=== PATIENT | female | born 1955 | race Caucasian/White ===

== ENCOUNTER 2017-04-06 14:12 | Outpatient (CLI) | payer BC ==
--- OUTSIDE RECORDS SUMMARY | 2017-04-11 20:05 | XMS | Clinical Summary ---
:1955 Author Organization [facility] Address [address] [place] [address] Phone Care Team Providers Name Role Phone , Primary Care Provider Unavailable Allergies Not on File Current Medications Not on file Active Problems Not on file Social History Tobacco Use Types Packs/Day Years Used Date Never Assessed Sex Assigned at Date Recorded Not on file Last Filed Vital Signs Not on file Plan of Treatment Health Maintenance Due Date Last Done Comments PAP SMEAR 1977 COLONOSCOPY 2006 MAMMOGRAM 2006 ZOSTER VACCINE 2016 INFLUENZA VACCINE 01/17/2017 Results Not on filefrom Last 3 Months
== END 2017-04-06 14:13 | disposition home or self-care (01) ==
LOC: WCC 14:12
PROVIDERS: ATTEND Family Medicine
DX: T81.89XD Other complications of procedures, not elsewhere classified, subsequent encounter (principal)
CPT/HCPCS: 99211; G0463

== ENCOUNTER 2017-09-18 12:40 | Outpatient (CLI) | payer OTHER ==
--- NOTE | 2017-09-18 15:20 | MRI ---
LUMBAR SPINE MRI WITH AND WITHOUT CONTRAST: History Transverse myelitis. Lower extremity pain and weakness. Increasing weakness I the legs. COMPARISON: None. TECHNIQUE: MRI lumbar spine is performed without intravenous Gadolinium administration. Multisequential, multip lanar imaging is performed. FINDINGS: An appropriate T1 marrow signal intensity of the lumbar vertebrae. Lumbar spine vertebral body heigh t is maintained. No fracture. There is 4 mm of anterolisthesis of L4 upon L5. No significant T2 or STIR hyperintensity to suggest vertebral body edema or ligamentous injury. There is a T2 hyperinten sity on the posterior margin of the disk at the L4-L5 level with associated enhancement. A small ana cristina ular fissure is favored. Symmetric signal intensity of the psoas muscles. Appropriate signal intensity of the visualized juan francisco d organs. No retroperitoneal mass, lymphadenopathy, or hematoma. Conus medullaris terminates at the inferior end plate of T12. T11-T12 and T12-L1: No significant central canal stenosis or foraminal narrowing. L1-L2: No significant central canal stenosis or foraminal narrowing. L2-L3: No significant central canal stenosis or foraminal narrowing. Minimal hypertrophy of the pos terior elements. L3-L4: Adequate disk hydration. No significant central canal stenosis. Neural foramen are patent b ilaterally. L4-L5: Desiccation with mild loss of disk space height. Minimal generalized disk bulge. Disk mater ial encroaches upon both subarticular zones. There is mass effect without obscuration of bilateral t raversing L5 nerve roots, left greater than right. There is moderate right-sided facet hypertrophy. A small amount of fluid in the right intraarticular facet joint. Overall, no significant stenosis o f the thecal sac. Bilaterally, foramen are patent. L5-S1: No significant central canal stenosis. Neural foramen are patent bilaterally. On the postcontrast images, there is no abnormal enhancement within the thecal sac including the caud a equina and conus medullaris. No abnormal enhancement of the vertebral bodies. There does appear t o be asymmetric slightly right paracentral disk bulge at T10-T11, incompletely evaluated and only christian reciated on the sagittal images. Refer to thoracic spine MRI which will be performed later today for further details. IMPRESSION: 1. No abnormal enhancement. 2. Degenerative changes of the lumbar spine as above. No high-grade central canal stenosis or high- grade foraminal narrowing. 3. Annular fissure at L5-S1. POS: [facility]
--- NOTE | 2017-09-18 15:38 | MRI ---
MRI THORACIC SPINE WITH AND WITHOUT CONTRAST: Technique: Multiplanar, multisequential imaging of the thoracic spine obtained. Post contrast images obtained after administering 18 cc of MultiHance IV. Indications: Transverse myelitis. Lower extremity pain and weakness. History of transverse myelitis a t T3-4. Comparison: None. FINDINGS: The thoracic vertebrae maintain normal height and alignment. Disc spaces are preserved. Mild degenera tive changes are noted. There is a small disc protrusion paracentrally to the left at the T7-8 disc level. This flattens the anterior thecal sac on the left and does abutt the anterior cord to the left of midline. There is small asymmetric disc bulge paracentrally to the left at T10-T11 which flattens the anterior thecal sac on the left. No cord impingement. No evidence of cord abnormality identified. There is no edema or enhancement seen within the thoracic cord. IMPRESSION: 1. Small disc protrusion to the left at T7-8 and T10-11 as described above. 2. No cord signal abnormality identified. POS: [facility]
--- NOTE | 2017-09-18 15:45 | MRI ---
CERVICAL SPINE MRI WITH AND WITHOUT CONTRAST: HISTORY: Lower extremity weakness. Dysphagia. Transverse myelitis at T3-T4 (past medical history). Increasi ng leg weakness. COMPARISON: None. TECHNIQUE: MRI cervical spine is performed with and without intravenous Gadolinium administration. Multisequent ial, multiplanar imaging is performed. FINDINGS: Appropriate T1 marrow signal intensity of the cervical vertebrae. Cervical spine vertebral body heig ht is maintained. No fracture. No abnormal enhancement. Visualized brain parenchyma, cervicomedull jake junction, cervical cord, and the upper thoracic cord have a normal size and signal intensity. No T2 hyperintensity. No abnormal enhancement. No STIR hyperintensity to suggest edema or ligamentous injury. C2-C3: No significant disk-osteophyte complex. O significant central canal stenosis or foraminal na rrowing. C3-C4: No significant disk-osteophyte complex. No significant central canal stenosis. Neural frances en are patent. Minimal degenerative changes of the uncovertebral joint. C4-C5: Broad-based disk-osteophyte complex with a right paracentral component. There is mass effect and deformity of the right aspect of the cervical cord. No T2 hyperintensity in the cord. Moderate central canal stenosis. Degenerative change in bilateral uncovertebral joints results in mild bilat eral foraminal narrowing. C5-C6: Broad-based disk-osteophyte complex with a central component deforms the thecal sac and cause s mass effect upon the central cord. No T2 hyperintensity in the cord. Moderate central canal steno sis. Degenerative change in bilateral uncovertebral joints results in mild to moderate bilateral for aminal narrowing. C6-C7: Broad-based disk-osteophyte complex abuts the thecal sac. Mild to moderate central canal yanira nosis. Degenerative change in bilateral uncovertebral joints results in mild to moderate bilateral f oraminal narrowing. C7-T1: No significant central canal stenosis or foraminal narrowing. IMPRESSION: 1. Degenerative change of the cervical spine as detailed above. 2. No abnormal enhancement. POS: [facility]
--- NOTE | 2017-09-18 15:51 | MRI ---
BRAIN MRI WITH AND WITHOUT CONTRAST: History Transverse myelitis T3-T4. Increased leg weakness. COMPARISON: None. TECHNIQUE: Brain MRI is performed with and without intravenous Gadolinium administration. Multisequential, mult iplanar imaging is performed. FINDINGS: No hemorrhage on the axial gradient echo sequence. There are multiple T2 and FLAIR white matter hyperintensities, the majority of which do not restrict and do not have enhancement. There is a solitary focus in the right centrum semiovale which does hav e associated subtle enhancement. A late subacute infarct compresses a demyelinating plaque or a poss ible malignant lesion are differential considerations. Comparison with prior imaging would be benefi cial. There is no midline shift. Basilar cisterns are patent. Cortical cook-white matter different iation is preserved. Adequate aeration of the sinuses and mastoid air cells. Midline brain parenchymal structures are unremarkable. Calvarium has a normal T1 marrow signal inten sity. IMPRESSION: Abnormal signal intensity involving the right centrum semiovale as detailed above. Differential cons ideration is a late subacute infarct versus a demyelinating plaque versus a malignant lesion. Compar juan m with prior imaging is recommended. POS: [facility]
== END 2017-09-18 12:41 | disposition home or self-care (01) ==
LOC: MRI 12:40
PROVIDERS: ATTEND Student in an Organized Health Care Education/Training Program
DX: Z01.812 Encounter for preprocedural laboratory examination (principal); G37.3 Acute transverse myelitis in demyelinating disease of central nervous system; M62.81 Muscle weakness (generalized); M79.603 Pain in arm, unspecified; M79.606 Pain in leg, unspecified; R13.10 Dysphagia, unspecified; R06.02 Shortness of breath; M47.892 Other spondylosis, cervical region; M51.24 Other intervertebral disc displacement, thoracic region; M47.896 Other spondylosis, lumbar region; Q05.7 Lumbar spina bifida without hydrocephalus
CPT/HCPCS: 70553; 72156; 72157; 72158; 82565

== ENCOUNTER → 2017-10-13 | Day surgery (SDC) | payer OTHER ==
[2017-10-13 10:08] LABS: CSF, Glucose 75 mg/dl (40-70); CSF, Protein 34 mg/dL (15-40)
[2017-10-13 10:30] LABS: Color Of CSF Supernatant COLORLESS (Colorless); Tube # 2; Unspun CSF Color COLORLESS (Colorless)
[2017-10-13 10:41] LABS: CSF Source CSF; Clarity Clear (Clear)
[2017-10-13 10:42] LABS: Tube # 4
[2017-10-13 10:43] LABS: RBC Count - Manual 770 /cumm (None Seen); WBC/NonHematics Count - Manual 0 /cumm (0-5)
--- NOTE | 2017-10-13 11:28 | RAD ---
LUMBAR PUNCTURE: HISTORY: Demyelinating change in brain. Evaluate for multiple sclerosis. Evaluate for transverse myelitis. Opening pressures requested. COMPARISON: None. FINDINGS: Successful lumbar puncture. A total of 9 cc of clear CSF was collected. Opening pressure is 12 cm o f water. TECHNIQUE: Consent was obtained to perform a lumbar puncture. The patient's back was evaluated. The L3-L4 leve l was deemed appropriate. The skin was prepped and draped in sterile fashion. 1% Lidocaine, buffere d with sodium bicarbonate, was used for local anesthesia. Under fluoroscopic guidance, a 22-gauge sp inal needle was advanced into the CSF space. Opening pressure was determined to be 12 cm of water. A total of 9 cc of clear CSF was collected. The patient tolerated the procedure well. No immediate or post procedure complication. EXPOSURE: 3.3 minutes. 954.6 mGy*^cm2. IMPRESSION: Successful lumbar puncture. POS: [facility]
[2017-10-13 14:10] LABS: Ref Lab Test Ordered NMO SERUM
[2017-10-13 14:12] LABS: Ref Lab Test Ordered FACEC
[2017-10-16 12:12] LABS: VDRL, CSF Non Reactive (Non Rea:<1:1)
== END ==
LOC: RAD 07:04
PROVIDERS: ATTEND Student in an Organized Health Care Education/Training Program
PROC: 009U3ZZ Drainage of Spinal Canal, Percutaneous Approach (ICD-10-PCS; principal; 2017-10-13)
DX: G37.3 Acute transverse myelitis in demyelinating disease of central nervous system (principal); Z88.1 Allergy status to other antibiotic agents; Z88.2 Allergy status to sulfonamides; Z88.5 Allergy status to narcotic agent
CPT/HCPCS: 36415; 62270; 82040; 82042; 82784; 82945; 83916; 84157; 86592; 86788; 86789; 87070; 87205; 87255; 88184; 89051

== ENCOUNTER 2017-12-26 14:40 | Outpatient (CLI) | payer OTHER | END 2017-12-26 14:41 | disposition home or self-care (01) | LOC: BICULT 14:40 | PROVIDERS: ATTEND Urology | DX: N31.9 Neuromuscular dysfunction of bladder, unspecified (principal) | CPT/HCPCS: 76770 ==

== ENCOUNTER 2019-11-06 18:18 | Inpatient (IN) | payer MEDICARE, OTHER ==
[~2019-11-06 18:18] MED LIST: Iopamidol-370 76% 500 ML 1 ML ONE
--- NOTE | 2019-11-06 18:55 | RAD ---
Exam: Chest one view HISTORY:Abdominal pain. Comparison: 05/11/2017 FINDINGS: Cardiac silhouette:Mild enlarged cardiac silhouette Aorta: Endovascular stent along the descending thoracic aorta Pulmonary vessels: Normal Costophrenic angles: Clear LUNGS: No masses or consolidation. Pneumothorax: None Osseous abnormalities: None IMPRESSION: 1. No acute cardiopulmonary process. 2. Redemonstration of a stent in the descending thoracic aorta.
[2019-11-06] MEDS ORDERED: Fentanyl 100 MCG/2 ML VIAL ONE ×3 (19:00→21:22)
[2019-11-06] MEDS ORDERED: Ondansetron PF 4 MG/2 ML Vial ONE ×3 (19:01→19:55)
[2019-11-06 19:15] LABS: #Eosinphils 0.1 thou/uL (0.0-0.7); #Lymphocytes 1.8 thou/uL (1.20-3.40); #Monocytes 0.5 thou/uL (0.11-0.59); #Neutrophils 11.5 thou/uL (1.40-6.50); %Basophils 0.2 % (0.0-1.0); %Eosinophils 0.7 % (0.0-10.0); %Monocytes 3.8 % (0.0-10.0); %Neutrophils 82.3 % (42.0-75.0); Hemoglobin 14.3 g/dL (12.0-16.0); Mean Corpuscular HGB CONC 33.7 g/dL (32.0-36.0); Mean Corpuscular Hemoglobin 29.5 pg (27.0-31.0); Mean Corpuscular Volume 87.5 fL (78.0-98.0); Mean Platelet Volume 8.6 fL (7.4-10.4); Platelet Count 241 thou/uL (130-400); RBC Distribution Width 13.4 % (11.5-14.5); Red Blood Cell (RBC) Count 4.86 mill/uL (4.20-5.40)
[2019-11-06 19:37] LABS: ALT (SGPT) 56 U/L (8-55); AST (SGOT) 39 U/L (5-34); Albumin 4.4 g/dL (3.4-4.8); Alkaline Phosphatase 111 U/L (40-110); Anion Gap 19 mmol/L (10-20); BUN (Urea Nitrogen) 14 mg/dL (9.8-20.1); Bilirubin, Total 0.5 mg/dL (0.2-1.2); Calc. Creatinine Clearance 0 mL/min (70-130); Calcium 9.4 mg/dL (7.8-10.44); Carbon Dioxide 25 mmol/L (23-31); Chloride 100 mmol/L (98-107); Estimated GFR-MDRD 52; Globulin 2.8 g/dL (2.4-3.5); Glucose 144 mg/dL (80-115); Lipase 7 U/L (8-78); Potassium 4.4 mmol/L (3.5-5.1); Protein, Total 7.2 g/dL (6.0-8.3); Sodium 140 mmol/L (136-145)
--- NOTE | 2019-11-06 20:04 | CT ---
EXAM: CT ABDOMEN AND PELVIS HISTORY: Left abdominal pain. History of volvulus. Previous aortic stent. COMPARISON: 05/07/2017 Procedure: Multiple contiguous axial images were obtained and a CT of the abdomen and pelvis with IV contrast. C oronal reformats were performed. FINDINGS: Lower Chest: within normal limits. Vessels: Stent in the descending thoracic aorta Heart: . No areas of aneurysm, dissection or periaortic fat stranding. Normal heart size. No pericard ial fluid Abdomen: Portal vein:Patent Gallbladder: Cholelithiasis. No evidence of cholecystitis Liver: Hypoattenuation due to hepatic steatosis. No enhancing masses. Pancreas: within normal limits. Spleen: within normal limits. Adrenals: within normal limits. Kidneys: Symmetric enhancement. No obstructive uropathy. Diverting Ileostomy in the right lower quadr ant. Peritoneum: No ascites or free air, no fluid collection. Bowel: Multiple prominent fluid-filled loops of proximal and mid small bowel. Mild enhancement of the mucosa. Small bowel anastomosis the left hemiabdomen. Ileocecal junction has a normal appearance. Appendix is not appreciated. No secondary signs of appendicitis. Decompressed colon with scattered fe jefferson material. Mesentery and Retroperitoneum: No enlarged mesenteric or retroperitoneal lymph nodes. Abdominal Wall: Right lower quadrant diverting ileostomy. Anterior midline supraumbilical hernia containing mesenteric fat. Pelvis: Reproductive Organs: Surgically absent uterus Pelvis: No mass, lymphadenopathy, free air or free fluid. Bladder: Surgically absent Bones: within normal limits. IMPRESSION: 1. Diverting ileostomy in the right lower quadrant. No evidence of hydronephrosis 2. Small bowel obstruction involving proximal and mid small bowel loops. Transcribed Date/Time: 11/06/2019 8:53 PM
[2019-11-06 20:20] LABS: Bacteria/HPF 3+ HPF (None Seen); Bilirubin Negative (Negative); Blood, Urine Negative (Negative); Clarity Turbid (Clear); Glucose, Urine (Dipstick) Normal (Negative); Leukocyte 500 Leu/uL (Negative); Nitrite Negative (Negative); Protein, Urine (Dipstick) 10 mg/dL (Neg-Trace); RBC/HPF 0-3 HPF (0-3); Squamous Epithelial 0-3 HPF (0-3); Urobilinogen Normal mg/dL (Less than 2); WBC/HPF 21-50 HPF (0-3)
[2019-11-06] MEDS ORDERED: Piperacillin/Tazobactam 4.5 GM VIAL ONE (20:48)
[2019-11-06] MEDS ORDERED: Benzocaine 20% Spray 60 ML CAN ONE (22:13)
[2019-11-06] MEDS ORDERED: Lidocaine Viscous Sol 2% 15 ml UD Cup ONE (22:13)
[2019-11-06] MEDS ORDERED: Oxymetazoline HCl 0.05% (30 ML BOT) ONE (22:13)
[2019-11-06 22:16] LABS: Lactic Acid 1.6 mmol/L (0.5-2.2)
--- NOTE | 2019-11-06 22:47 | RAD ---
Exam: 1 view abdomen HISTORY: NG tube placement FINDINGS: Nasogastric tube terminates in the left upper quadrant and is presumed to be in the stomach . IMPRESSION: Nasogastric tube is in stomach.
[2019-11-06] MEDS ORDERED: Dextrose 5% in Water 1,000 ML IV PRN (23:52)
[2019-11-06] MEDS ORDERED: Dextrose 50% Abboject 50 ML SYRINGE SLOW IVP PRN (23:52)
[2019-11-06] MEDS ORDERED: HumaLOG 300 UNITS/3 ML VIAL SC PRN (23:52)
[2019-11-06] MEDS ORDERED: HYDROmorphone 0.5 MG/0.5 ML SYRINGE SLOW IVP PRN (23:54)
[2019-11-07] MEDS: Sodium Chloride 0.9% 1,000 ML IV SCH ×3 (00:35→14:38)
[2019-11-07] MEDS: Ampicillin/Sulbactam 3 GM in Sodium Chloride 0.9% 100 ML IVPB SCH ×4 (01:07→20:28)
--- NOTE | 2019-11-07 03:35 | HP ---
REASON FOR ADMISSION: Abdominal pain. HISTORY OF PRESENT ILLNESS: This is a 64-year-old female patient, who has history of transverse myelitis diagnosed in 2015. Subsequently, paralyzed from below T5 level, has been self catheterizing and had frequent urinary tract infection, and in 2017, she had a bladder removed with ileostomy done. After that procedure, she developed a total of 3 episodes of bowel obstruction, last episode was in 2018. All the episodes were treated conservatively without further surgical intervention. Yesterday, the patient developed abdominal pain localized mainly in the left part of her abdomen, but radiates to the whole abdomen, the pain is described as cramping in nature, severe in intensity, associated with nausea and vomiting, the pain improves after vomiting. Her stools usually are soft because she takes a lot of laxatives, but today she did not have any bowel movements. Since the nausea and vomiting persisted as well as the abdominal pain, she presented to our emergency room. Initially, she had a sepsis alert. Her lactic acid was elevated. Her urine was positive for infection. She was given Zosyn and vancomycin. She got IV fluids. Repeat lactic acid normalized. Currently, she complains of pain. Does not report any fevers. No chills. She says that her urinalysis usually is positive since she does have the ileostomy. PAST MEDICAL HISTORY: 1. Transverse myelitis. 2. Post bladder resection and ileostomy. 3. Frequent UTIs before she had the ileostomy done. 4. Hypothyroidism. 5. Chronic pain and muscle spasm in her lower extremity, for which she takes baclofen and Neurontin. 6. DVT at the site of the PICC line and in her lower extremity, for which she takes Xarelto 10 mg once a day. 7. Diabetes, for which she takes metformin. 8. Bilateral lower extremity edema, for which she takes furosemide. ALLERGIES: TO CEPHALEXIN, WHICH GIVES HER HIVES, BUT SHE IS ABLE TO TOLERATE AUGMENTIN AND OTHER ANTIBIOTICS. ALSO MORPHINE MAKES HER AGITATED. FAMILY HISTORY: Positive for lung cancer. REVIEW OF SYSTEMS: All systems reviewed except for the above mentioned nausea and vomiting, found to be negative. PHYSICAL EXAMINATION: GENERAL: The patient is awake, alert, oriented, does not appear in distress. VITAL SIGNS: Her blood pressure is 121/93, heart rate of 106, respiratory rate 16, and saturating 94% on room air. HEENT: Head is nontraumatic and normocephalic. Pupils equal, reactive. Extraocular movements are intact. NECK: Supple. No adenopathy. No murmur. Thyroid is not palpable. Trachea is midline. No supraclavicular adenopathy. HEART: S1, S2, . No murmur. No gallop. No friction rubs. No displacement of PMI. LUNGS: Clear to auscultation bilaterally. No wheezes, rhonchi, or crackles. Bowel sounds are decreased. ABDOMEN: Distended and tender, but soft, non-rigid. EXTREMITIES: No lower extremity edema. No cyanosis noted on exam. She is able to move all her 4 extremities. Cranial nerves appeared to be intact. LABORATORY DATA: Blood work shows sodium 140, potassium 4.4, bicarb 25, BUN 14, creatinine 1.07. Lactic acid initially 2.7, repeat 1.6, glucose 144, AST 39, ALT 56. Reviewing previous lab values, they were within normal limits. Alkaline phosphatase is 111, previously 103 in 2018. Urine shows 500 leukocyte esterase and 20-50 WBC. IMAGING DATA: CT of the abdomen and pelvis shows diverting ileostomy in the right lower quadrant. No evidence of hydronephrosis. Small-bowel obstruction involving proximal and mid small bowel loops. Chest x-ray shows no acute process re-demonstrating a stent in the descending thoracic aorta. ASSESSMENT AND PLAN: This is a 64-year-old female patient, who presented with abdominal pain secondary to small-bowel obstruction. Also, her urine is positive for urinary tract infection. GI: The patient will be kept n.p.o. She does have an NG tube placed and it is to intermittent suction, Surgery was consulted by the ED physician and they will see her in the morning. Until then, she will be on IV Dilaudid as needed. She will be on IV Protonix since she is on omeprazole at home. We will recheck her labs in the morning. Her LFTs were a bit elevated, but possibly due to dehydration and she will be on IV fluids. In regard to her diabetes, we will hold her insulin and we will cover her with insulin sliding scale. Her glucose was acceptable, so we would not give her any long-acting since she is n.p.o. for now. In regard to her urinary tract infection, I would expect that her urine will always be positive for WBC since she does have ileostomy, but since she is presenting acutely and with all other symptoms, we would prefer to cover her with antibiotics, in the ER she did receive IV Zosyn and vancomycin. I believe that Unasyn should suffice. She said that she can take Augmentin, so Unasyn should work without any side effects. For DVT prophylaxis, she will be on Lovenox, the patient is on Xarelto 10 mg once a day for DVT prophylaxis since she does have history of DVT. So, Lovenox 40 mg once a day should suffice. The patient does have a lot of other medications that we will not be able to convert to IV such as baclofen, Neurontin, levothyroxine, and pilocarpine. Also, she is on furosemide for swelling of her legs, but for now since we are aiming to hydrate her, I would not restart her on IV Lasix and I believe that we can hold off on the other oral medications for now until her obstruction resolves. I did discuss the above plan with her and she is in agreement. I did discuss her code status and she wishes to be a full code. Job ID: [id number]
[2019-11-07] MEDS: Fentanyl 100 MCG/2 ML VIAL SLOW IVP PRN ×2 (05:51→09:45)
[2019-11-07 06:21] VITALS: BMI 36.6
[2019-11-07 06:28] LABS: #Eosinphils 0.2 thou/uL (0.0-0.7); #Lymphocytes 1.5 thou/uL (1.20-3.40); #Monocytes 0.7 thou/uL (0.11-0.59); #Neutrophils 13.1 thou/uL (1.40-6.50); %Basophils 0.1 % (0.0-1.0); %Lymphocytes 9.7 % (21.0-51.0); %Monocytes 4.5 % (0.0-10.0); %Neutrophils 84.8 % (42.0-75.0); Hemoglobin 13.8 g/dL (12.0-16.0); Mean Corpuscular HGB CONC 34.1 g/dL (32.0-36.0); Mean Corpuscular Hemoglobin 30.2 pg (27.0-31.0); Mean Corpuscular Volume 88.5 fL (78.0-98.0); Mean Platelet Volume 8.2 fL (7.4-10.4); Platelet Count 158 thou/uL (130-400); RBC Distribution Width 13.6 % (11.5-14.5); Red Blood Cell (RBC) Count 4.58 mill/uL (4.20-5.40); White Blood Cell (WBC) Count 15.5 thou/uL (4.8-10.8)
[2019-11-07 06:32] LABS: Chloride 105 mmol/L (98-107); Sodium 140 mmol/L (136-145)
[2019-11-07 06:40] LABS: ALT (SGPT) 41 U/L (8-55); AST (SGOT) 26 U/L (5-34); Albumin 3.8 g/dL (3.4-4.8); Alkaline Phosphatase 88 U/L (40-110); Bilirubin, Direct 0.3 mg/dL (0.1-0.3); Bilirubin, Total 0.6 mg/dL (0.2-1.2); Protein, Total 6.7 g/dL (6.0-8.3)
[2019-11-07 06:41] LABS: Anion Gap 16 mmol/L (10-20); BUN (Urea Nitrogen) 12 mg/dL (9.8-20.1); Calc. Creatinine Clearance 83 mL/min (70-130); Calcium 8.3 mg/dL (7.8-10.44); Carbon Dioxide 22 mmol/L (23-31); Estimated GFR-MDRD 61; Glucose 119 mg/dL (80-115)
[2019-11-07] MEDS ORDERED: Enoxaparin Sodium 40 MG/0.4 ML SYRINGE SC SCH (09:00)
[2019-11-07] MEDS: Pantoprazole 40 MG VIAL IVP SCH (09:35)
[2019-11-07] MEDS: Ondansetron PF 4 MG/2 ML Vial IVP PRN (09:46)
[2019-11-07 11:18] LABS: Magnesium 1.9 mg/dL (1.6-2.6); Phosphorus 3.3 mg/dL (2.3-4.7)
[2019-11-07] MEDS ORDERED: Fentanyl 100 MCG/2 ML VIAL SLOW IVP PRN (13:40)
[2019-11-07] MEDS: Cyclobenzaprine 10 MG TAB PO SCH ×2 (14:37→20:14)
[2019-11-07] MEDS: Gabapentin 300 MG CAP PO SCH ×2 (14:37→20:14)
--- NOTE | 2019-11-07 15:23 | EKG ---
Test Reason : Blood Pressure : / mmHG Vent. Rate : 097 BPM Atrial Rate : 097 BPM P-R Int : 168 ms QRS Dur : 084 ms QT Int : 346 ms P-R-T Axes : 054 036 045 degrees QTc Int : 439 ms Normal sinus rhythm Possible Lateral infarct , age undetermined Inferior infarct , age undetermined Abnormal ECG Confirmed by SILVINO NIX DO ([id number]), associate entertainment editor JENNY HALL ([id number]) on 11/07/2019 3:22:50 PM Referred By: Confirmed By:SILVINO NIX DO
[2019-11-07] MEDS: Chloraseptic Spray 180 ml Bottle PO PRN ×2 (17:51→20:18)
[2019-11-07] MEDS: Baclofen 10 MG TAB PO SCH (20:14)
--- NOTE | 2019-11-07 20:28 | CON ---
DATE OF CONSULTATION: 11/07/2019 CHIEF COMPLAINT: Bowel obstruction. HISTORY OF PRESENT ILLNESS: This is a 64-year-old female, who is status post ileal conduit, who presents with a history of nausea, vomiting, abdominal bloating, and pain. The pain was described as severe and sharp last night, associated with severe nausea and bloating, that is much improved today. She has been passing some gas, but not had a bowel movement yet. She denies any further nausea. CT scan overnight revealed question of small bowel obstruction. The patient was also noted to have urinary tract infection. The patient has had previous small bowel obstruction that resolved without surgery. PAST MEDICAL HISTORY: Transverse myelitis with associated paralysis, frequent UTIs, chronic pain, history of DVT, and diabetes. PAST SURGICAL HISTORY: Ileal conduit. ALLERGIES: SEE LONG LIST. MEDICATIONS: Taken daily, see list. SOCIAL HISTORY: No smoking or alcohol or other drugs. REVIEW OF SYSTEMS: Ten-system review of systems is otherwise negative as described above. PHYSICAL EXAMINATION: VITAL SIGNS: Blood pressure 115/73, pulse 97, and respirations 18. HEENT: Sclerae anicteric. Oropharynx clear. CHEST: Clear. HEART: Regular rate. ABDOMEN: Soft. It is distended minimally, mildly tender. Ileal conduit in place in the right abdomen. No obvious inguinal incisional hernias. EXTREMITIES: No ischemia or edema to extremities. IMAGING STUDIES: CT scan reviewed showing small bowel obstruction. ASSESSMENT: Small bowel obstruction, stable, improved clinically. PLAN: Continue NG tube, n.p.o., and IV fluids today. Tomorrow morning, Gastrografin small bowel followthrough. Risks, benefits, and alternatives discussed, she gives consent to this treatment course. We will follow with you. Job ID: [id number]
[2019-11-08] MEDS: Sodium Chloride 0.9% 1,000 ML IV SCH ×3 (01:25→23:13)
[2019-11-08] MEDS: Ampicillin/Sulbactam 3 GM in Sodium Chloride 0.9% 100 ML IVPB SCH ×3 (01:25→15:22)
[2019-11-08 06:22] LABS: #Eosinphils 0.3 thou/uL (0.0-0.7); #Lymphocytes 1.7 thou/uL (1.20-3.40); #Monocytes 0.4 thou/uL (0.11-0.59); #Neutrophils 5.8 thou/uL (1.40-6.50); %Basophils 0.4 % (0.0-1.0); %Eosinophils 3.7 % (0.0-10.0); %Lymphocytes 20.9 % (21.0-51.0); %Monocytes 4.6 % (0.0-10.0); %Neutrophils 70.4 % (42.0-75.0); Hemoglobin 12.9 g/dL (12.0-16.0); Mean Corpuscular HGB CONC 32.6 g/dL (32.0-36.0); Mean Corpuscular Hemoglobin 29.3 pg (27.0-31.0); Mean Corpuscular Volume 89.8 fL (78.0-98.0); Mean Platelet Volume 8.2 fL (7.4-10.4); Platelet Count 155 thou/uL (130-400); RBC Distribution Width 13.4 % (11.5-14.5); Red Blood Cell (RBC) Count 4.39 mill/uL (4.20-5.40); White Blood Cell (WBC) Count 8.2 thou/uL (4.8-10.8)
[2019-11-08 06:36] LABS: ALT (SGPT) 30 U/L (8-55); AST (SGOT) 24 U/L (5-34); Albumin 3.6 g/dL (3.4-4.8); Alkaline Phosphatase 79 U/L (40-110); Anion Gap 15 mmol/L (10-20); BUN (Urea Nitrogen) 8 mg/dL (9.8-20.1); Bilirubin, Total 0.5 mg/dL (0.2-1.2); Calc. Creatinine Clearance 100 mL/min (70-130); Calcium 7.7 mg/dL (7.8-10.44); Carbon Dioxide 25 mmol/L (23-31); Chloride 103 mmol/L (98-107); Estimated GFR-MDRD 76; Globulin 2.8 g/dL (2.4-3.5); Glucose 85 mg/dL (80-115); Phosphorus 2.7 mg/dL (2.3-4.7); Potassium 3.5 mmol/L (3.5-5.1); Protein, Total 6.4 g/dL (6.0-8.3); Sodium 139 mmol/L (136-145)
[2019-11-08] MEDS: Baclofen 10 MG TAB PO SCH ×2 (08:09→22:19)
[2019-11-08] MEDS: Pantoprazole 40 MG VIAL IVP SCH (08:09)
[2019-11-08] MEDS: Cyclobenzaprine 10 MG TAB PO SCH ×3 (08:10→22:19)
[2019-11-08] MEDS: Gabapentin 300 MG CAP PO SCH ×3 (08:10→22:19)
[2019-11-08] MEDS: Ondansetron PF 4 MG/2 ML Vial IVP PRN (08:52)
[2019-11-08] MEDS ORDERED: MD-Gastroview 120 ML BOT ONE (10:06)
[2019-11-08] MEDS ORDERED: Ondansetron PF 4 MG/2 ML Vial IVP SCH (11:15)
--- NOTE | 2019-11-08 12:21 | RAD ---
Exam: Gastrografin small bowel HISTORY: Evaluate for small bowel obstruction. COMPARISON: none FINDINGS: Initial dietary manager radiograph demonstrates a nasogastric tube terminating in the epigastric nahum on. There are prominent air-filled loops of small bowel in the right hemiabdomen Patient was administered Gastrografin which opacifies multiple small bowel loops. Contrast does opaci fy the right hemicolon on the 2 hour image. IMPRESSION: No evidence of high-grade obstruction
--- NOTE | 2019-11-08 13:02 | PRG ---
DATE OF SERVICE: 11/08/2019 SUBJECTIVE: Ms. Jimenez just finished her Gastrografin small bowel follow-through. She has complained of mild bloating and nausea. She has not had a bowel movement yet. OBJECTIVE: VITAL SIGNS: She is afebrile. Vital signs are stable. ABDOMEN: Soft, nontender, nondistended. Her ileal conduit-ostomy is pink. Small bowel follow-through shows good passage within 2 hours. ASSESSMENT: Small bowel obstruction, improved. PLAN: We will leave the NG tube in until her nausea and bloating improves, then discontinue and try clear liquids. Dr. Leach is covering for me this weekend. Job ID: [id number]
--- NOTE | 2019-11-08 19:24 | PDOC.HOSPP ---
- Subjective Encounter Date: 11/08/19 Encounter Time: 14:00 Subjective: Patient seen and examined for SBO. Tolerainting ice chips. No N/V. Abd pain improving. No other complaints. No overnight events - Objective Vital Signs & Weight: Vital Signs (12 hours) Temp Pulse Resp BP BP Pulse Ox 11/08/19 16:46 97.8 F 81 16 154/85 H 93 L 11/08/19 11:25 98.8 F 84 16 152/81 H 97 11/08/19 08:05 97 11/08/19 07:50 98.7 F 79 16 129/77 97 Weight Admit Weight 187 lb Weight 187 lb 6.287 oz I&O: 11/07/19 11/08/19 11/09/19 06:59 06:59 06:59 Intake Total 950 875 Output Total 1450 2000 Balance -500 -9809 Result Diagrams: 11/08/19 05:49 11/08/19 05:49 Additional Labs: Accuchecks 11/08/19 11/08/19 11/08/19 16:50 11:35 05:47 POC Glucose 100 81 94 11/08/19 00:21 POC Glucose 105 Microbiology 11/06/19 18:58 Venous blood - Right Arm Blood Culture - Preliminary NO GROWTH AT 48 HOURS 11/06/19 18:58 Venous blood - Left Arm Blood Culture - Preliminary NO GROWTH AT 48 HOURS Laboratory Tests 11/06/19 18:58 Lactic Acid 2.7 H Radiology Reviewed by me: Yes (CT abd - reviewed) Hospitalist ROS - Review of Systems Respiratory: denies: cough, dry, shortness of breath, hemoptysis, SOB with excertion, pleuritic pain, sputum, wheezing, other Cardiovascular: denies: chest pain, palpitations, orthopnea, paroxysmal noc. dyspnea, edema, light headedness, other - Medication Medications: Active Medications Generic Name Dose Route Start Last Admin Trade Name Freq PRN Reason Stop Dose Admin Baclofen 20 mg 11/07/19 21:00 11/08/19 08:09 Lioresal PO Not Given BID [facility] Cyclobenzaprine HCl 10 mg 11/07/19 15:00 11/08/19 15:23 Flexeril PO Not Given TID [facility] Gabapentin 300 mg 11/07/19 15:00 11/08/19 15:23 Neurontin PO Not Given TID [facility] Ampicillin Sodium/Sulbactam 100 mls @ 200 mls/hr 11/07/19 02:00 11/08/19 15: 22 Sodium 3 gm/ Sodium Chloride IVPB 100 mls 0200,0800,1400,2000 JENNIFER Administration Sodium Chloride 1,000 mls @ 75 mls/hr 11/07/19 00:30 11/08/19 18:07 Normal Saline 0.9% IV Not Given .[id number] [facility] Ondansetron HCl 4 mg 11/06/19 23:55 11/08/19 08:52 Zofran IVP 4 mg Q6H PRN Administration Nausea/Vomiting Pantoprazole Sodium 40 mg 11/07/19 09:00 11/08/19 08:09 Protonix IVP 40 mg DAILY JENNIFER Administration Phenol 0 ml 11/07/19 13:39 11/07/19 20:18 Chloraseptic [place] 180 Ml Bot PO 2 spr BIDPRN PRN Administration Sore Throat - Exam General Appearance: NAD Neck: supple, no JVD, no thyromegaly, no carotid bruit Heart: RRR, no gallops, no rubs, normal peripheral pulses Respiratory: no wheezes, no rales, no ronchi, normal chest expansion Gastrointestinal: soft, non-distended, normal bowel sounds, no guarding, no rigidity Extremities: no cyanosis, no clubbing Extremities - other findings: no tenderness Neurological: no new deficit Psychiatric: normal affect, A&O x 3 Hosp A/P - Plan DVT proph w/SCDs SIRS due to SBO UTI ruled out Obesity BMI 36.6 h/o Transverse myelitis DM2 Lactic acidosis due to dehydration Hypothyroidism Chronic pain syndrome Abn LFTs prob due to #1 - improving h/o DVT on anticoag PLAN: s/p small bowel f/t Cont IVF Pain control DC NG tube later today if toleraiting PO Restart home meds including anticoagulation AM labs
[2019-11-08] MEDS ORDERED: Temazepam 15 MG CAP PO PRN (19:43)
--- NOTE | 2019-11-09 02:27 | PRG ---
DATE OF SERVICE: SUBJECTIVE: The patient was seen this evening during rounds. She was resting in bed comfortably and asleep with no signs of acute distress. Nursing reported she discontinued the NG tube around midnight per the orders of Dr. Treviño, who stated if the patient's nausea, vomiting, abdominal pain had resolved for at least 6 hours that she could remove the NG tube. OBJECTIVE: VITAL SIGNS: Temperature 97.8, pulse 89, respirations 16, oxygen saturation 95% on room air, and blood pressure 149/79. GENERAL: Well-appearing elderly female, lying in bed with no signs of acute distress. PULMONARY: Equal chest rise and fall. No signs of acute respiratory distress. ASSESSMENT: Small-bowel obstruction, resolving. PLAN: Continue current n.p.o. Continue IV fluids. Continue ambulating as much as possible and monitor for return of bowel function. Job ID: [id number]
[2019-11-09] MEDS: Sodium Chloride 0.9% 1,000 ML IV SCH (05:29)
[2019-11-09] MEDS ORDERED: Levothyroxine Sodium 125 MCG TAB PO SCH (06:00)
[2019-11-09 06:35] LABS: #Eosinphils 0.2 thou/uL (0.0-0.7); #Lymphocytes 1.7 thou/uL (1.20-3.40); #Monocytes 0.4 thou/uL (0.11-0.59); #Neutrophils 5.3 thou/uL (1.40-6.50); %Basophils 0.4 % (0.0-1.0); %Eosinophils 2.9 % (0.0-10.0); %Lymphocytes 22.2 % (21.0-51.0); %Monocytes 4.6 % (0.0-10.0); %Neutrophils 69.9 % (42.0-75.0); Anion Gap 16 mmol/L (10-20); BUN (Urea Nitrogen) 7 mg/dL (9.8-20.1); Calc. Creatinine Clearance 107 mL/min (70-130); Calcium 7.6 mg/dL (7.8-10.44); Carbon Dioxide 24 mmol/L (23-31); Chloride 105 mmol/L (98-107); Estimated GFR-MDRD 82; Glucose 81 mg/dL (80-115); Hemoglobin 12.5 g/dL (12.0-16.0); Mean Corpuscular HGB CONC 33.1 g/dL (32.0-36.0); Mean Corpuscular Hemoglobin 29.6 pg (27.0-31.0); Mean Corpuscular Volume 89.4 fL (78.0-98.0); Mean Platelet Volume 8.1 fL (7.4-10.4); Platelet Count 174 thou/uL (130-400); Potassium 3.2 mmol/L (3.5-5.1); RBC Distribution Width 13.3 % (11.5-14.5); Red Blood Cell (RBC) Count 4.22 mill/uL (4.20-5.40); Sodium 142 mmol/L (136-145); White Blood Cell (WBC) Count 7.5 thou/uL (4.8-10.8)
[2019-11-09] MEDS: Cyclobenzaprine 10 MG TAB PO SCH ×2 (09:34→14:51)
[2019-11-09] MEDS: Baclofen 10 MG TAB PO SCH (09:34)
[2019-11-09] MEDS: Potassium Chloride 10 MEQ TAB PO SCH ×2 (09:34→14:51)
[2019-11-09] MEDS: Gabapentin 300 MG CAP PO SCH ×2 (09:35→14:51)
--- NOTE | 2019-11-09 14:31 | PRG ---
DATE OF SERVICE: 11/09/2019 This is Katelyn Rogers NP dictating a report for Pawel Leach DO. SUBJECTIVE: The patient was seen during morning rounds with Dr. Leach, awake and alert, in no distress, lying in hospital bed. The patient has been tolerating clear liquids overnight. The patient voices no complaints or concerns at this time. The patient did have a bowel movement this morning. The patient is also tolerating a full liquid diet today. OBJECTIVE: VITAL SIGNS: Temperature 98.3, pulse 79, respirations 18, SpO2 of 94% on room air, and blood pressure 132/77. ABDOMEN: Soft, nontender, and nondistended. NEUROLOGIC: GCS 15. ASSESSMENT: Small-bowel obstruction, resolved. PLAN: Continue full liquids and advance diet as tolerated. The patient can be discharged home from a surgery standpoint. Please let us know if you have any questions. Again, the patient was examined by Dr. Leach during morning rounds. The plan was discussed with the patient who agrees. Job ID: [id number] MTDD
[2019-11-09 16:25] VITALS: BP 139/79; TEMP 98
[2019-11-09] MEDS ORDERED: Rivaroxaban 10 MG TAB PO SCH (17:00)
--- NOTE | 2019-11-10 08:34 | DIS ---
DATE OF ADMISSION: 11/06/2019 DATE OF DISCHARGE: 11/09/2019 DISCHARGE DISPOSITION: Home. FOLLOWUP: 1. Follow up with General Surgery, Dr. Juvencio Treviño in 2 weeks. 2. Follow up with Dr. Audrey Donald in 1 week. INPATIENT DRYWALL INSTALLER: General Surgery, Dr. Treviño. The patient was seen and examined on the day of discharge. Denies any new complaints. No chest pain, shortness of breath, nausea, or vomiting reported. DISCHARGE MEDICATIONS: Same as admission medications. 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 Her CT scan was consistent with small-bowel obstruction. She was managed conservatively with IV fluids and NG tube. She underwent Gastrografin small-bowel follow-through that showed resolution of the small-bowel obstruction. She is tolerating oral diet. The patient was evaluated by General Surgery, Dr. Treviño. The patient has been cleared by General Surgery for discharge. All home medications were resumed. The patient had some electrolyte abnormalities, which have been corrected. She also had lactic acidosis of 2.7 on admission that improved to 1.0. FINAL DIAGNOSES: 1. Small-bowel obstruction, resolved. 2. Nausea, vomiting with abdominal discomfort secondary to above. 3. Obesity with a BMI of 36.6. 4. History of transverse myelitis with paralysis. The patient is bedbound. 5. Diabetes mellitus, type 2. 6. Lactic acidosis secondary to dehydration. 7. Chronic pain syndrome. 8. Hypothyroidism. 9. Abnormal LFTs probably secondary to #1, improving. 10. History of thromboembolism, on anticoagulation. The patient understands the above plan of care. Job ID: [id number]
== END 2019-11-09 16:44 | disposition home or self-care (01) | DRG 389 ==
LOC: ERS 18:18 → T4-B 21:56
PROVIDERS: ADMIT Internal Medicine; ATTEND Internal Medicine
DX: K56.609 Unspecified intestinal obstruction, unspecified as to partial versus complete obstruction (principal); E87.2 Acidosis; R65.10 Systemic inflammatory response syndrome (SIRS) of non-infectious origin without acute organ dysfunction; F32.9 Major depressive disorder, single episode, unspecified; E11.9 Type 2 diabetes mellitus without complications; F41.9 Anxiety disorder, unspecified; G83.89 Other specified paralytic syndromes; E86.0 Dehydration; E03.9 Hypothyroidism, unspecified; G89.4 Chronic pain syndrome; E66.9 Obesity, unspecified; Z68.36 Body mass index [BMI] 36.0-36.9, adult; Z93.2 Ileostomy status; Z74.01 Bed confinement status; Z87.440 Personal history of urinary (tract) infections; Z86.718 Personal history of other venous thrombosis and embolism; Z79.01 Long term (current) use of anticoagulants; Z90.710 Acquired absence of both cervix and uterus; Z88.2 Allergy status to sulfonamides; Z88.8 Allergy status to other drugs, medicaments and biological substances; Z88.6 Allergy status to analgesic agent; Z88.1 Allergy status to other antibiotic agents; Z91.040 Latex allergy status
CPT/HCPCS: 36415; 36416; 71045; 74018; 74177; 74250; 80048; 80053; 80076; 81003; 81015; 83605; 83690; 83735; 84100; 84484; 85025; 87040; 93005; 94760; 96361; 96365; 96375; 96376; C9113; J0295; J2405; J2543; J3010; J3490; Q9963; Q9967

== ENCOUNTER 2021-08-24 10:57 | Outpatient (CLI) | payer MEDICARE, OTHER | END 2021-08-24 10:58 | disposition home or self-care (01) | PROVIDERS: ATTEND Internal Medicine | DX: Z02.71 Encounter for disability determination (principal) ==